=== PATIENT | male | born 1945 | race Asian ===

== ENCOUNTER 2024-01-20 00:31 | Emergency (ER) | payer OTHER ==
[~2024-01-20] VITALS: Ht 165.1 cm; Wt 56.7 kg
[2024-01-20 00:31] VITALS: BP_SYST 138; PULSE 88; RESP 18; TEMP 98.7; O2SAT 99
== END 2024-01-20 01:12 ==
LOC: SED 00:31
DX: R53.1 Weakness (principal)
CPT/HCPCS: 99283